=== PATIENT | male | born 1980 | race Caucasian/White ===

== ENCOUNTER 2017-06-23 17:15 | Emergency (ER) | payer OTHER ==
[~2017-06-23] VITALS: Ht 177.8 cm; Wt 109.9 kg
[2017-06-23 17:25] VITALS: TEMP 36.8; Ht 177.8 cm; Wt 109.9 kg
[2017-06-23] MEDS ORDERED: IBUP-103 PO (18:13)
[2017-06-23] MEDS ORDERED: ACET-1256 PO (18:13)
[2017-06-23] MEDS ORDERED: OXYCODONE HCL IR 5 MG TAB (IMMEDIATE RELEASE) PO STA (18:33)
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
--- NOTE | 2017-06-23 18:54 | DIAGNOSTIC IMAGING REPORT ---
CT HEAD WITHOUT CONTRAST (CT) CLINICAL HISTORY: Fall. Head trauma. COMPARISON STUDY: No previous studies for comparison. TECHNIQUE: Axial CT of the brain is performed from the vertex to the skull base. IV contrast was not administered for this examination. A dose lowering technique was utilized adhering to the principles of ALARA. CT DOSE: FINDINGS: No intra or extra-axial mass lesions are visualized. There is no CT evidence of acute cortical infarction. There is no evidence of midline shift. There is no acute hemorrhage. No calvarial fractures are visualized. There is no evidence of pathologic ventricular dilatation. There is no evidence of acute sinusitis IMPRESSION: No acute intracranial findings Electronically signed by: Carlos Mireles M.D. 06/23/2017 6:52 PM Dictated Date/Time: 06/23/2017 6:51 PM
--- NOTE | 2017-06-23 19:02 | DIAGNOSTIC IMAGING REPORT ---
CT OF THE CERVICAL SPINE WITHOUT CONTRAST CLINICAL HISTORY: Fall from height. COMPARISON STUDY: No previous studies for comparison. TECHNIQUE: Helical axial images of the cervical spine were obtained without IV contrast. Sagittal and coronal reconstructions were viewed. A dose lowering technique was utilized adhering to the principles of ALARA. FINDINGS: Alignment of the cervical spine is anatomic. The craniocervical junction is intact. There is no acute cervical spine fracture. Vertebral body heights are maintained. There is no prevertebral edema. Facet joints are intact. There is mild multilevel lower cervical spine disc space narrowing and osteophytosis. IMPRESSION: No acute cervical spine fracture or subluxation. Electronically signed by: Rei [place] M.D. 06/23/2017 7:00 PM Dictated Date/Time: 06/23/2017 6:52 PM
--- NOTE | 2017-06-23 20:23 | DIAGNOSTIC IMAGING REPORT ---
L-SPINE MIN 4 VIEWS ROUTINE CLINICAL HISTORY: Back pain status post trauma COMPARISON STUDY: No previous studies for comparison. FINDINGS: No acute fractures or subluxations are visualized. IMPRESSION: No fractures or subluxations identified. Electronically signed by: Carlos Mireles M.D. 06/23/2017 8:22 PM Dictated Date/Time: 06/23/2017 8:21 PM
--- NOTE | 2017-06-23 20:24 | DIAGNOSTIC IMAGING REPORT ---
RIGHT ELBOW MIN 3 VIEWS ROUTINE CLINICAL HISTORY: Right elbow pain status post trauma COMPARISON: None. DISCUSSION: The fat pads are displaced consistent with a no effusion/hemarthrosis. There is acute radial head/neck fracture. There is no dislocation. IMPRESSION: Acute nondisplaced radial head/neck fracture. Electronically signed by: Carlos Mireles M.D. 06/23/2017 8:23 PM Dictated Date/Time: 06/23/2017 8:22 PM
--- NOTE | 2017-06-23 20:26 | DIAGNOSTIC IMAGING REPORT ---
RIGHT HUMERUS MIN 2 VIEWS ROUTINE CLINICAL HISTORY: Right humeral pain status post trauma COMPARISON: None. DISCUSSION: No acute fractures or dislocations of the humerus are visualized. There is nonspecific irregularity of the scapula just inferior to the scapular glenoid. IMPRESSION: 1. Nonspecific age-indeterminate irregularity of the scapula, just inferior to the scapular glenoid 2. No humeral fractures identified. Electronically signed by: Carlos Mireles M.D. 06/23/2017 8:24 PM Dictated Date/Time: 06/23/2017 8:23 PM
--- NOTE | 2017-06-23 20:27 | DIAGNOSTIC IMAGING REPORT ---
RIGHT FOREARM 2 VIEWS ROUTINE CLINICAL HISTORY: Right forearm pain status post trauma COMPARISON: None. DISCUSSION: There is a nondisplaced radial head/neck fracture. No additional fractures are visualized. There is no dislocation. IMPRESSION: Nondisplaced radial head/neck fracture. Electronically signed by: Carlos Mireles M.D. 06/23/2017 8:26 PM Dictated Date/Time: 06/23/2017 8:25 PM
--- NOTE | 2017-06-23 20:28 | DIAGNOSTIC IMAGING REPORT ---
RIGHT WRIST W/NAVICULAR 4 VIEWS CLINICAL HISTORY: Right wrist pain status post trauma COMPARISON: None. DISCUSSION: No acute fractures or dislocations are visualized. IMPRESSION: No acute fractures or dislocations identified. Electronically signed by: Carlos Mireles M.D. 06/23/2017 8:27 PM Dictated Date/Time: 06/23/2017 8:26 PM
[2017-06-23] MEDS ORDERED: OXYC1TAB3 PO (20:41)
[2017-06-23] MEDS ORDERED: OXYCODONE IR HOME PACK PO ONE (20:45)
[2017-06-23 21:13] VITALS: BP 154/76; PULSE 88; O2SAT 99
== END 2017-06-23 21:14 | disposition home or self-care (01) ==
LOC: C.EDB 17:17 → C.EDD 21:14
DX: S52.124A Nondisplaced fracture of head of right radius, initial encounter for closed fracture (principal); S06.9X9A Unspecified intracranial injury with loss of consciousness of unspecified duration, initial encounter; W11.XXXA Fall on and from ladder, initial encounter; Y99.0 Civilian activity done for income or pay; F17.200 Nicotine dependence, unspecified, uncomplicated